=== PATIENT | female | born 2000 | race African-American/Black ===

== ENCOUNTER 2019-07-30 19:56 | Emergency (ER) | payer MEDICAID ==
[~2019-07-30] VITALS: Ht 170.2 cm; Wt 124.7 kg
[2019-07-30 20:00] VITALS: BP 119/60
--- NOTE | 2019-07-30 20:10 | NUR ---
TO LOBBY A/W BED AMBULATORY
--- NOTE | 2019-07-30 22:30 | NUR ---
PT AMBULATED TO BED 05
--- NOTE | 2019-07-30 23:00 | NUR ---
PATIENT LEFT WITHOUT BEING SEEN BY DR. MCHUGH. NO FURTHER CARE PROVIDED FOR PATIENT.
== END 2019-07-30 23:00 | disposition left against medical advice (07) ==
LOC: MED 19:56
DX: M54.5 Low back pain (principal); R05 Cough; R06.02 Shortness of breath; R11.0 Nausea; Z53.21 Procedure and treatment not carried out due to patient leaving prior to being seen by health care provider
CPT/HCPCS: 71046; 99281